=== PATIENT | male | born 1940 | race Caucasian/White ===

== ENCOUNTER 2017-10-20 08:10 | Outpatient (CLI) | payer MEDICARE ==
--- NOTE | 2017-10-21 14:39 | Ultrasound Report ---
REVISED: REPORT ORIGINALLY SIGNED ON 10/21/2017@1445; ORDERS LINKED ON 2017 jll BILATERAL LOWER EXTREMITY ARTERIAL DUPLEX WITH ABIs: 10/20/2017 CLINICAL INDICATION: Cold feet, absent dorsalis pedis pulse. TECHNIQUE: Real-time sonographic vascular imaging was performed by the maintenance job titles through the lower extremities utilizing both color-flow and Doppler spectral analysis. Multiple security systems sales representative static images were saved for review. RIGHT SIDE SITE [employer] W[employer] STEN BUSINESS DEVELOPMENT SPECIALIST 88 biphasic [] PSFA 63 biphasic [] MSFA 77 biphasic [] DSFA 64 biphasic [] PFA 69 biphasic [] POP 69 monophasic [] TOM 27 biphasic [] MOBILE UI DESIGNER 25 biphasic [] PER not seen not seen [] DPA 60 biphasic [] LEFT SIDE SITE [employer] WAVEFORM STEN BUSINESS DEVELOPMENT SPECIALIST 79 biphasic [] PSFA 64 biphasic [] MSFA 81 biphasic [] DSFA 63 biphasic [] PFA 69 biphasic [] POP 56 biphasic [] TOM 31 monophasic [] MOBILE UI DESIGNER 164 biphasic [] PER 60 monophasic [] DPA 40 biphasic occludes beyond here. [] ANKLE BRACHIAL INDICES SYSTOLIC PRESSURES RIGHT LEFT BRACHIAL ARTERY 141/73 129/69 POSTERIOR TIBIAL ARTERY 132/75 145/61 ANTERIOR TIBIAL ARTERY -- -- PERONEAL ARTERY -- -- ANKLE/ARM INDEX 0.93 1.12 FINDINGS RIGHT LEG: Waveforms are predominantly biphasic. There is no evidence of a focal velocity increase to suggest a hemodynamically significant stenosis. LEFT LEG: Waveforms are predominantly biphasic. There is a focal velocity increase in the left posterior tibial artery, compatible with a hemodynamically significant stenosis. The left dorsalis pedis artery occludes past the level of the ankle. ABIs are normal, with the right measuring 0.93, and the left measuring 1.12. IMPRESSION: LIKELY HEMODYNAMICALLY SIGNIFICANT STENOSIS IN THE LEFT POSTERIOR TIBIAL ARTERY. 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 NORMAL ABIs. TD: 10/20/2017 17:27 EDDIE
== END 2017-10-20 08:11 | disposition home or self-care (01) ==
LOC: DI 08:10
PROVIDERS: ATTEND Internal Medicine
DX: I77.1 Stricture of artery (principal)
CPT/HCPCS: 93922; 93925